=== PATIENT | female | born 1965 | race Caucasian/White ===

== ENCOUNTER → 2019-03-19 | Outpatient (CLI) | payer BC ==
--- NOTE | 2019-03-23 07:28 | MM ---
Reason for exam: screening (asymptomatic). Last mammogram was performed 9 years and 4 months ago. History: Patient is postmenopausal and history of other cancer. Family history of premenopausal breast cancer in sister. Took hormonal contraceptives for 2 years. Taking estrogen beginning at age 53. Taking progesterone. Physical Findings: A clinical breast exam by your physician is recommended on an annual basis and results should be correlated with mammographic findings. MG Screening Mammo w CAD Bilateral CC and MLO view(s) were taken. Prior study comparison: November 16, 2009, right breast mammogram dig work up. November 09, 2009, bilateral digital screening mammogram. There are scattered fibroglandular densities. New grouped calcifications posterior central 6 o'clock right breast. Additional 11 o'clock nodularity right breast. ASSESSMENT: Incomplete: need additional imaging evaluation, BI-RAD 0 RECOMMENDATION: Special view mammogram of the right breast. [facility] will attempt to contact patient to return for supplemental views.
== END ==
LOC: RADMAMWWP 15:24
PROVIDERS: ATTEND Obstetrics & Gynecology
DX: Z12.31 Encounter for screening mammogram for malignant neoplasm of breast (principal); R92.8 Other abnormal and inconclusive findings on diagnostic imaging of breast
CPT/HCPCS: 77067

== ENCOUNTER → 2019-04-01 | Outpatient (CLI) | payer BC ==
--- NOTE | 2019-04-02 09:36 | MM ---
Reason for exam: additional evaluation requested from abnormal screening. Last mammogram was performed less than 1 month ago. History: Patient is postmenopausal and history of other cancer. Family history of premenopausal breast cancer in sister. Took hormonal contraceptives for 2 years. Taking estrogen beginning at age 53. Taking progesterone. Physical Findings: Nurse did not find any significant physical abnormalities on exam. MG Work Up Mamm w CAD RT CC with magnification, LM with magnification, and LM view(s) were taken of the right breast. Prior study comparison: March 19, 2019, bilateral MG screening mammo w CAD. November 16, 2009, right breast mammogram dig work up. 5mm circumscribed mass 11 o'clock persists. Heterogenous grouped and regional calcifications are new. These results were verbally communicated with the patient and result sheet given to the patient on 04/01/19. ASSESSMENT: Incomplete: need additional imaging evaluation, BI-RAD 0 RECOMMENDATION: Ultrasound of the right breast. (9-1 o'clock)
--- NOTE | 2019-04-02 09:38 | USB ---
Reason for exam: additional evaluation requested from abnormal screening. History: Patient is postmenopausal and history of other cancer. Family history of premenopausal breast cancer in sister. Took hormonal contraceptives for 2 years. Taking estrogen beginning at age 53. Taking progesterone. US Breast Workup Limited RT Right limited breast ultrasound including focal area of concern, retroareolar and axilla demonstrates a 0.4 x 0.4 x 0.4cm round, cystic lesion at 12 o'clock, benign and likely corresponds to the mammographic finding. Stereo biopsy of the calcifications recommended. These results were verbally communicated with the patient and result sheet given to the patient on 04/01/19. ASSESSMENT: Suspicious, BI-RAD 4 RECOMMENDATION: Stereotactic core biopsy of the right breast. Called Dr. Martinez's office with mammographic findings and has scheduled an appointment for the patient for 04/19/19 at 9:[address] Wong. Biopsy scheduled for 05/06/19 at 10:20. PRELIMINARY REPORT CALLED AND FAXED TO DR. WONG ON 04/01/19.
== END | disposition home or self-care (01) ==
LOC: RADMAMWWP 13:36
PROVIDERS: ATTEND Obstetrics & Gynecology
DX: R92.8 Other abnormal and inconclusive findings on diagnostic imaging of breast (principal)
CPT/HCPCS: 77065

== ENCOUNTER → 2019-05-06 | Day surgery (SDC) | payer BC ==
[2019-05-06 09:35] VITALS: BP 159/99; PULSE 109; RESP 16; TEMP 98.3
== END ==
LOC: RADMAMWWP 09:11
PROVIDERS: ATTEND Surgery
DX: R92.8 Other abnormal and inconclusive findings on diagnostic imaging of breast (principal); Z53.8 Procedure and treatment not carried out for other reasons

== ENCOUNTER → 2019-05-27 | Day surgery (SDC) | payer BC ==
[2019-05-27 07:17] VITALS: RESP 16; TEMP 98.2
[2019-05-27 09:25] VITALS: BP 135/86; PULSE 96
--- NOTE | 2019-05-27 11:08 | MM ---
EXAMINATION TYPE: MG stereo VAD BX RT DATE OF EXAM: 05/27/2019 COMPARISON: Prior exam 03/19/2019 CLINICAL HISTORY: Abnormal mammogram TECHNIQUE: Stereotactic guided core biopsy of right breast. FINDINGS: The procedure of stereotactic guided core biopsy was explained to the patient. Benefits, alternatives, and risks were discussed. An informed consent was then obtained. The shortness pathway for biopsy was chosen. Shortness pathway was inferior approach. I performed the localization. A vacuum assisted biopsy gun was used to obtain multiple core samples. The patient tolerated the procedure well without any immediate complication. The patient was kept in the radiology department for short stay after the procedure and then discharged home in stable condition. Targeted calcifications are identified in specimen mammogram. Post biopsy mammogram shows the clip to appear in satisfactory position relative to the targeted area of concern on the preprocedure images. IMPRESSION: Status post stereotactic mammotome right breast biopsy with calcifications present within the specimen for laboratory analysis. This procedure performed by the undersigned. SUCCESSFUL, UNCOMPLICATED STEREOTACTIC GUIDED CORE BIOPSY OF AREA OF CONCERN IN THE BREAST, FULL PATHOLOGY RESULTS TO FOLLOW. Pathology Results: Benign RIGHT BREAST LESION, NEEDLE CORE BIOPSIES: Benign breast lesions including sclerosing adenosis, usual duct hyperplasia and apocrine metaplasia in a background of stromal fibrosis. Intraductal mineralizations are evident. Recommendation Follow up mammogram of the right breast in 6 months. JOID
== END ==
LOC: RADMAMWWP 06:54
PROVIDERS: ATTEND Surgery
DX: N60.21 Fibroadenosis of right breast (principal); N62 Hypertrophy of breast; N60.81 Other benign mammary dysplasias of right breast; N60.31 Fibrosclerosis of right breast; R92.1 Mammographic calcification found on diagnostic imaging of breast; R92.8 Other abnormal and inconclusive findings on diagnostic imaging of breast
CPT/HCPCS: 88305; 19081; A4648; J2001

== ENCOUNTER 2019-12-29 10:12 | Day surgery (SDC) | payer BC ==
[2019-12-27 15:49] VITALS: BMI 32.2
[~2019-12-29 10:12] MED LIST: LACTATED RINGERS 1,000 ML IV SCH
[2019-12-29 10:34] VITALS: TEMP 97
[2019-12-29] MEDS ORDERED: PROPOFOL 10 MG/ML 20 ML VIAL IV ONE (12:11)
[2019-12-29] MEDS ORDERED: LIDOCAINE 1% INJ 10MG/ML (20 ML MDV) ONE (12:11)
--- NOTE | 2019-12-29 12:36 | P.PCN ---
Date of Procedure: 12/29/19 Procedure(s) Performed: Brief history: Patient is a pleasant scheduled for an elective upper endoscopy as well as colonoscopy as a part of evaluation of GERD/intermittent dysphagia to solids and screening for colorectal neoplasia Procedure performed: Esophagogastroduodenoscopy with biopsy and dilation Colonoscopy Preoperative diagnosis: GERD/intermittent dysphagia to solids Screening for colon cancer Anesthesia: [facility] Procedure: After informed consent was obtained from the patient was brought into the endoscopy unit and IV sedation was administered by anesthesia under continuous monitoring. Initially upper endoscopy was done. The Olympus GF 160 video endoscope was inserted inserted into the mouth and esophagus intubated without any difficulty and was gradually advanced into the stomach and duodenum and carefully examined. The bulb and second part of the duodenum appeared normal. The scope was then withdrawn into the stomach adequately insufflated with air and upon careful examination the antrum and body, cardia and fundus appeared normal. The scope was then withdrawn into the esophagus. The GE junction was located at 37cm to the incisors. Small sliding type hiatal hernia noted. There was a distal esophageal stricture identified and this was dilated using 12-15 mm TTS balloon in a sequential fashion for 90 seconds. At this time there was a small mucosal tear was brisk oozing identified and further dilation was not performed. The GE junction appeared regular with no erythema erosions or ulcerations. Rest of the esophagus appeared normal. Biopsies were done from the distal esophagus. Patient tolerated the procedure well. At this time the patient continued to remain sedation. Initial digital rectal examination was normal. Olympus CF 160 video colonoscope was then inserted into the rectum and gradually advanced to the cecum without any difficulty. Careful examination was performed as the scope was gradually being withdrawn. The prep was excellent. The cecum, ascending colon, transverse colon, descending colon, sigmoid colon and rectum appeared normal. Retroflexion was performed in the rectum and no lesions were noted. Patient tolerated the procedure well. Impression: 1. Upper endoscopy revealed distal esophageal stricture status post balloon dil ation using 12-15 mm TTS balloon as described above. 2. Colonoscopy was within normal limits with no evidence of colorectal neoplasia Recommendations: Findings of this examination were discussed with the patient as well as her family. She was advised to follow with the biopsy results. She'll continue with omeprazole 20 mg daily and follow antireflux measures. She will remain on a clear liquid diet today. She'll be seen in office in 6 weeks.
[2019-12-29 12:46] VITALS: RESP 16
[2019-12-29 13:08] VITALS: BP 143/86; PULSE 73
== END 2019-12-29 13:13 | disposition home or self-care (01) ==
LOC: ORWHC2ENDO 10:12
PROVIDERS: ATTEND Internal Medicine Gastroenterology
DX: K21.9 Gastro-esophageal reflux disease without esophagitis (principal); K22.8 Other specified diseases of esophagus; K22.2 Esophageal obstruction; K44.9 Diaphragmatic hernia without obstruction or gangrene; Z12.11 Encounter for screening for malignant neoplasm of colon; Z79.899 Other long term (current) drug therapy; Z90.710 Acquired absence of both cervix and uterus; Z91.89 Other specified personal risk factors, not elsewhere classified
CPT/HCPCS: 88305; 43239; J2001; J2704; C1726; G0121

== ENCOUNTER → 2023-02-14 | Outpatient (CLI) | payer OTHER ==
--- NOTE | 2023-02-14 11:03 | MM ---
Reason for Exam: Clinical finding. Last mammogram was performed 3 year(s) and 11 month(s) ago. Indicated Problems: Pain of the right side (Focal) for 3 Week(s) : periodically feels the pain.. Patient History: Menarche at age 13. First Full-Term at age 20. Left ovary removed at age 44. Right ovary removed at age 44. Hysterectomy at age 44. Postmenopausal. Other cancer. Currently using Estrogen, starting at age 53. Currently using Progesterone. Patient used Hormonal Contraceptives for 2 years. 05/27/2019, Benign Core Biopsy on the right side. Maternal half sister had breast cancer under age 50. Maternal half sister had breast cancer at or over age 50. Risk Values: Lynn 5 year model risk: 1.0%. NCI Lifetime model risk: 6.9%. Prior Study Comparison: 10/10/2008 Bilateral Screening Mammogram, [facility]. 11/09/2009 Bilateral Screening Mammogram, [facility]. 11/16/2009 Right Diagnostic Mammogram, [facility]. 03/19/2019 Bilateral Screening Mammogram, [facility]. 04/01/2019 Right Diagnostic Mammogram, [facility]. Tissue Density: The breast tissue is heterogeneously dense. This may lower the sensitivity of mammography. Findings: Analyzed By CAD. Previously sampled microcalcifications inner lower right breast. No new microcalcifications seen. No mass or distortion. Overall Assessment: Benign, BI-RAD 2 Management: Screening Mammogram of both breasts in 1 year. . Results were given to the patient verbally at the time of exam. Patient should continue monthly self-breast exams. A clinical breast exam by your physician is recommended on an annual basis. This exam should not preclude additional follow-up of suspicious palpable abnormalities. Note on Lynn scores and lifetime risk: 1. A Lynn score greater than 3% is considered moderate risk. If this is the case, consider specialist referral to assess eligibility for a risk reducing agent. 2. If overall lifetime risk for the development of breast cancer is 20% or higher, the patient may qualify for future screening with alternating mammogram and breast MRI. Electronically signed and approved by: Evgeny Tiwari M.D. Radiologis
== END | disposition home or self-care (01) ==
LOC: RADMAMWWP 10:02
PROVIDERS: ATTEND Family Medicine
DX: N64.4 Mastodynia (principal); Z78.0 Asymptomatic menopausal state; Z80.3 Family history of malignant neoplasm of breast
CPT/HCPCS: 77062; 77066

== ENCOUNTER → 2024-03-05 | Outpatient (CLI) | payer OTHER ==
--- NOTE | 2024-03-08 19:00 | MM ---
Reason for Exam: Screening (asymptomatic). Last mammogram was performed 1 year(s) and 1 month(s) ago. Patient History: Menarche at age 13. First Full-Term at age 20. Left ovary removed at age 44. Right ovary removed at age 44. Hysterectomy at age 44. Postmenopausal. Other cancer. Currently using Estrogen, starting at age 53. Currently using Progesterone. Patient used Hormonal Contraceptives for 2 years. 05/27/2019, Benign Core Biopsy on the right side. Maternal half sister had breast cancer under age 50. Maternal half sister had breast cancer at or over age 50. Risk Values: Lynn 5 year model risk: 1.1%. NCI Lifetime model risk: 6.7%. Prior Study Comparison: 03/19/2019 Bilateral Screening Mammogram, [facility]. 04/01/2019 Right Diagnostic Mammogram, [facility]. 02/14/2023 Bilateral MG 3D diag mammo w/cad KM, [facility]. Tissue Density: There are scattered areas of fibroglandular density. Findings: Analyzed By CAD. Unchanged asymmetric density posterior inferior right breast with associated microcalcifications as well as microclip from prior biopsy. Chronic nodularity on the left. There is no suspicious group of microcalcifications or new suspicious mass in either breast. Overall Assessment: Benign, BI-RAD 2 Management: Screening Mammogram of both breasts in 1 year. . Patient should continue monthly self-breast exams. A clinical breast exam by your physician is recommended on an annual basis. This exam should not preclude additional follow-up of suspicious palpable abnormalities. Note on Lynn scores and lifetime risk: 1. A Lynn score greater than 3% is considered moderate risk. If this is the case, consider specialist referral to assess eligibility for a risk reducing agent. 2. If overall lifetime risk for the development of breast cancer is 20% or higher, the patient may qualify for future screening with alternating mammogram and breast MRI. [facility], , 03/08/2024 6:57 PM. Electronically signed and approved by: Valerie Sol M.D. Radiologist
== END | disposition home or self-care (01) ==
LOC: RADMAMWWP 13:58
PROVIDERS: ATTEND Family Medicine
DX: Z12.31 Encounter for screening mammogram for malignant neoplasm of breast
CPT/HCPCS: 77063; 77067